=== PATIENT | male | born 1965 | race Caucasian/White ===

== ENCOUNTER 2018-08-27 11:31 | Emergency (ER) | payer OTHER, SELFPAY ==
[2018-08-27 12:22] LABS: Absolute Lymphocytes (CBC) 1.4 K/uL (0.7-4.9); Absolute Monocytes 0.5 K/uL (0.1-1.3); Absolute Neutrophil 5.1 K/uL (1.8-8.0); Basophils % 0.4 % (0-1.3); Eosinophils % 1.8 % (0-4.4); Hematocrit 47.1 % (39.6-49.0); MPV 7.7 fL (7.6-11.3); Monocytes % 6.7 % (3.3-12.3); RBC Red Blood Cell Count 5.05 M/uL (4.33-5.43)
[2018-08-27 12:43] LABS: ALT/SGPT 29 U/L (12-78); AST/SGOT 17 U/L (15-37); Alkaline Phosphatase 89 U/L (45-117); BUN Blood Urea Nitrogen 18 mg/dL (7-18); Bicarbonate 28 mmol/L (21-32); Bilirubin Direct 0.2 mg/dL (0-0.2); Glucose Level 111 mg/dL (74-106); NT PRO-BNP 17 pg/mL (<125); Protein, Total 7.4 g/dL (6.4-8.2); Sodium Level 139 mmol/L (136-145); Troponin (Emerg Dept Use Only) < 0.02 ng/mL (0.0-0.045)
--- NOTE | 2018-08-27 12:58 | RAD REPORT ---
EXAM DESCRIPTION: RAD - Chest Single View - 08/27/2018 12:20 pm CLINICAL HISTORY: Chest pain COMPARISON: None. TECHNIQUE: AP portable chest image was obtained 1211 hours . FINDINGS: No focal consolidation, mass or failure finding. Interstitial markings are mildly prominen t with the patient's baseline unknown. Heart and vasculature are normal. No measurable pleural effusi on and no pneumothorax. No acute bony abnormality seen. No acute aortic findings suspected. IMPRESSION: No focal cardiopulmonary finding. Mild prominence of the interstitial markings probably baseline for the patient.
--- NOTE | 2018-08-27 13:56 | EDPHYS ---
Physician Documentation [facility] Name: Roddy Byrd Age: 53 yrs Sex: Male : 1965 Arrival Date: 08/27/2018 Time: 11:32 Bed 7 Private MD: ED Physician Patricio Sánchez HPI: 08/27 13:50 This 53 yrs old Male presents to ER via Ambulatory with complaints of Chest rn Pain, High Blood Pressure. 13:50 The patient or guardian reports chest pain that is located primarily in the substernal rn area. Onset: 3 week(s) ago. The pain does not radiate. The chest pain is described as aching, dull. Duration: The patient or guardian reports multiple episodes, that are intermittent. Modifying factors: The symptoms are alleviated by nothing. the symptoms are aggravated by nothing. Severity of pain: At its worst the pain was mild in the emergency department the pain has improved. The patient has not experienced similar symptoms in the past. Reports 3 weeks of intermittent chest discomfort, feels "fluttering", no radiation, intermittent dyspnea, reports no symptoms while exercising, but got winded moving a safe which is not typical for him, otherwise doesn't take any meds. Has appt with cardiology in 3 days. . Historical: - Allergies: 11:56 No Known Allergies; aj1 - Home Meds: 11:56 None [Active]; aj1 - PMHx: 11:56 None; aj1 - PSHx: 11:56 Knee surgery; aj1 - Immunization history:: Flu vaccine is not up to date. - Social history:: Smoking status: Patient/guardian denies using tobacco. - Ebola Screening: : Patient denies travel to an Ebola-affected area in the 21 days before illness onset. - Family history:: not pertinent. - Hospitalizations: : No recent hospitalization is reported. ROS: 13:50 Constitutional: Negative for fever, chills, and weight loss, Eyes: Negative for injury, rn pain, redness, and discharge, Cardiovascular: Negative for edema Respiratory: Negative for wheezing, and pleuritic chest pain, Abdomen/GI: Negative for abdominal pain, nausea, vomiting, diarrhea, and constipation, MS/Extremity: Negative for injury and deformity, Skin: Negative for injury, rash, and discoloration, Neuro: Negative for headache, weakness, numbness, tingling, and seizure. Exam: 13:50 Constitutional: This is a well developed, well nourished patient who is awake, alert, rn and in no acute distress. Head/Face: Normocephalic, atraumatic. Eyes: Pupils equal round and reactive to light, extra-ocular motions intact. Lids and lashes normal. Conjunctiva and sclera are non-icteric and not injected. Cornea within normal limits. Periorbital areas with no swelling, redness, or edema. Neck: Trachea midline, no thyromegaly or masses palpated, and no cervical lymphadenopathy. Supple, full range of motion without nuchal rigidity, or vertebral point tenderness. No Meningismus. Cardiovascular: Regular rate and rhythm with a normal S1 and S2. No gallops, murmurs, or rubs. No JVD. No pulse deficits. Respiratory: Lungs have equal breath sounds bilaterally, clear to auscultation. No increased work of breathing, no retractions or nasal flaring. Abdomen/GI: Soft, non-tender Skin: Warm, dry with normal turgor. Normal color with no rashes, no lesions, and no evidence of cellulitis. MS/ Extremity: Pulses equal, no cyanosis. Neurovascular intact. Full, normal range of motion. Equal circumference. Neuro: Awake and alert, GCS 15, oriented to person, place, time, and situation. Cranial nerves II-XII grossly intact. Motor strength 5/5 in all extremities. Sensory grossly intact. Cerebellar exam normal. Vital Signs: 11:56 BP 148 / 97; Pulse 98; Resp 20; Temp 98.3; Pulse Ox 98% on R/A; Weight 74.84 kg (R); aj1 Height 5 ft. 9 in. (175.26 cm) (R); Pain 0/10; 13:00 BP 142 / 95; Pulse 92; Resp 18; Pulse Ox 99% on R/A; aj1 14:00 BP 137 / 92; Pulse 87; Resp 18; Pulse Ox 97% on R/A; aj1 11:56 Body Mass Index 24.37 (74.84 kg, 175.26 cm) aj1 MDM: 11:38 Patient medically screened. rn 13:50 Differential diagnosis: acute myocardial infarction, acute pericarditis, anxiety, rn coronary artery disease chest wall pain, costochondritis, pleurisy, pneumonia, pneumothorax, pulmonary embolus, stable angina. Data reviewed: vital signs, nurses notes, lab test result(s), EKG, radiologic studies, plain films, and as a result, I will admit patient. Counseling: I had a detailed discussion with the patient and/or guardian regarding: the historical points, exam findings, and any diagnostic results supporting the discharge/admit diagnosis, lab results, radiology results, the need for further work-up and treatment in the hospital. Special discussion: Based on the patient's history, exam, and Dx evaluation, there is no indication for emergent intervention or inpatient Tx. It is understood by the patient/guardian that if the Sx's persist or worsen they need to return immediately for re-evaluation. ED course: Possible chest pain equivalent, offered admission but patient has appt in 3 days, would like to go home and f/u outpt, neg trop, normal ecg, will dc home. BP improved without meds, will defer BP management to cardiology. Needs outpt stress/ECHO/BP management. Return precautions. . 08/27 11:51 Order name: Basic Metabolic Panel; Complete Time: 12:08/27 11:51 Order name: CBC with Diff; Complete Time: 12:08/27 11:51 Order name: LFT's; Complete Time: 12:08/27 11:51 Order name: NT PRO-BNP; Complete Time: 12:08/27 11:51 Order name: Troponin (emerg Dept Use Only); Complete Time: 12:08/27 11:51 Order name: D-Dimer; Complete Time: 12:08/27 11:51 Order name: XRAY Chest (1 view); Complete Time: 13:08/27 11:51 Order name: EKG; Complete Time: 11:52 08/27 11:51 Order name: Cardiac monitoring; Complete Time: 12:08/27 11:51 Order name: EKG - Nurse/Tech; Complete Time: 12:08/27 11:51 Order name: IV Saline Lock; Complete Time: 12:08/27 11:51 Order name: Labs collected and sent; Complete Time: 12:08/27 11:51 Order name: O2 Per Protocol; Complete Time: 12:08/27 11:51 Order name: O2 Sat Monitoring; Complete Time: 12:00 rn Administered Medications: No medications were administered Disposition: 08/27/18 13:56 Discharged to Home. Impression: Chest pain, unspecified. - Condition is Stable. - Discharge Instructions: Nonspecific Chest Pain. - Medication Reconciliation Form, Thank You Letter, Antibiotic Education, Prescription Opioid Use form. - Follow up: Private Physician; When: As needed; Reason: Recheck today's complaints, Re-evaluation by your physician. - Problem is new. - Symptoms have improved. Signatures: Dispatcher [employer] EDMS Norma Reid RN RN aj1 Patricio Sánchez MD MD rn Corrections: (The following items were deleted from the chart) 13:53 13:50 Constitutional: This is a well developed, well nourished patient who is awake, rn alert, and in no acute distress. Head/Face: Normocephalic, atraumatic. Eyes: Pupils equal round and reactive to light, extra-ocular motions intact. Lids and lashes normal. Conjunctiva and sclera are non-icteric and not injected. Cornea within normal limits. Periorbital areas with no swelling, redness, or edema. Neck: Trachea midline, no thyromegaly or masses palpated, and no cervical lymphadenopathy. Supple, full range of motion without nuchal rigidity, or vertebral point tenderness. No Meningismus. Cardiovascular: Regular rate and rhythm with a normal S1 and S2. No gallops, murmurs, or rubs. No JVD. No pulse deficits. Respiratory: Lungs have equal breath sounds bilaterally, clear to auscultation. No increased work of breathing, no retractions or nasal flaring. Abdomen/GI: Soft, non-tender Skin: Warm, dry with normal turgor. Normal color with no rashes, no lesions, and no evidence of cellulitis. MS/ Extremity: Pulses equal, no cyanosis. Neurovascular intact. Full, normal range of motion. Equal circumference. Neuro: Awake and alert, GCS 15, oriented to person, place, time, and situation. Cranial nerves II-XII grossly intact. Motor strength 5/5 in all extremities. Sensory grossly intact. Cerebellar exam normal. Normal gait. rn 14:37 13:56 08/27/2018 13:56 Discharged to Home. Impression: Chest pain, unspecified. aj1 Condition is Stable. Forms are Medication Reconciliation Form, Thank You Letter, Antibiotic Education, Prescription Opioid Use. Follow up: Private Physician; When: As needed; Reason: Recheck today's complaints, Re-evaluation by your physician. Problem is new. Symptoms have improved. rn
--- NOTE | 2018-08-27 13:56 | ER ---
Nurse's Notes [facility] Name: Roddy Byrd Age: 53 yrs Sex: Male : 1965 Arrival Date: 08/27/2018 Time: 11:32 Bed 7 Private MD: Diagnosis: Chest pain, unspecified Presentation: 08/27 11:53 Presenting complaint: Patient states: He has been having dizziness off and on for the aj1 past 3 weeks. Patient also reports a "weird feeling" in his chest. Denies shortness of breath. He took his blood pressure at home today and noticed that it was elevated, so he was concerned. Reports that he also sometimes has some tingling in his hands when he lays down at night. Transition of care: patient was not received from another setting of care. Onset of symptoms was August 2018. Risk Assessment: Do you want to hurt yourself or someone else? Patient reports no desire to harm self or others. Initial Sepsis Screen: Does the patient meet any 2 criteria? HR > 90 bpm. No. Patient's initial sepsis screen is negative. Does the patient have a suspected source of infection? No. Patient's initial sepsis screen is negative. Care prior to arrival: None. 11:53 Method Of Arrival: Ambulatory aj1 11:53 Acuity: SARAH 3 aj1 Triage Assessment: 11:56 General: Appears in no apparent distress. comfortable, Behavior is calm, cooperative, aj1 appropriate for age. Pain: Denies pain. Cardiovascular: Patient's skin is warm and dry. Historical: - Allergies: 11:56 No Known Allergies; aj1 - Home Meds: 11:56 None [Active]; aj1 - PMHx: 11:56 None; aj1 - PSHx: 11:56 Knee surgery; aj1 - Immunization history:: Flu vaccine is not up to date. - Social history:: Smoking status: Patient/guardian denies using tobacco. - Ebola Screening: : Patient denies travel to an Ebola-affected area in the 21 days before illness onset. - Family history:: not pertinent. - Hospitalizations: : No recent hospitalization is reported. Screenin:57 Abuse screen: Denies threats or abuse. Denies injuries from another. Nutritional aj1 screening: No deficits noted. Tuberculosis screening: No symptoms or risk factors identified. 14:35 Fall Risk None identified. aj1 Assessment: 11:57 General: Appears in no apparent distress. comfortable, Behavior is calm, cooperative, aj1 appropriate for age. Pain: Denies pain. Pain: Patient denies pain at this time Pain began N/A patient denies pain at this time. Neuro: Level of Consciousness is awake, alert, obeys commands, Oriented to person, place, time, situation, Moves all extremities. Full function Speech is normal, Facial symmetry appears normal, Reports dizziness, that is intermittent for the past 3 weeks. Cardiovascular: Reports a weird feelings in his chest Heart tones S1 S2 present Patient's skin is warm and dry. Rhythm is sinus rhythm. Respiratory: Airway is patent Respiratory effort is even, unlabored, Respiratory pattern is regular, symmetrical, Breath sounds are clear bilaterally. Denies cough, shortness of breath. GI: No signs and/or symptoms were reported involving the gastrointestinal system. : No signs and/or symptoms were reported regarding the genitourinary system. EENT: No signs and/or symptoms were reported regarding the EENT system. Derm: No signs and/or symptoms reported regarding the dermatologic system. Skin is pink, warm \\T\\ dry. normal. Musculoskeletal: No signs and/or symptoms reported regarding the musculoskeletal system. Circulation, motion, and sensation intact. 13:00 Reassessment: Patient appears in no apparent distress at this time. No changes from aj1 previously documented assessment. Patient and/or family updated on plan of care and expected duration. Pain level reassessed. 14:05 Reassessment: Patient appears in no apparent distress at this time. No changes from aj1 previously documented assessment. Patient and/or family updated on plan of care and expected duration. Pain level reassessed. Patient is alert, oriented x 3, equal unlabored respirations, skin warm/dry/pink. Vital Signs: 11:56 BP 148 / 97; Pulse 98; Resp 20; Temp 98.3; Pulse Ox 98% on R/A; Weight 74.84 kg (R); aj1 Height 5 ft. 9 in. (175.26 cm) (R); Pain 0/10; 13:00 BP 142 / 95; Pulse 92; Resp 18; Pulse Ox 99% on R/A; aj1 14:00 BP 137 / 92; Pulse 87; Resp 18; Pulse Ox 97% on R/A; aj1 11:56 Body Mass Index 24.37 (74.84 kg, 175.26 cm) aj1 ED Course: 11:32 Patient arrived in ED. as 11:38 Patricio Sánchez MD is Attending Physician. rn 11:53 Norma Reid RN is Primary Nurse. aj1 11:55 Triage completed. aj1 11:56 Arm band placed on. aj1 11:57 Patient has correct armband on for positive identification. shelter monitor on. Pulse aj1 ox on. NIBP on. 11:57 No provider procedures requiring assistance completed. Patient maintains SpO2 aj1 saturation greater than 95% on room air. 12:04 EKG done, by ED staff, reviewed by Patricio Sánchez MD. em1 12:15 Initial lab(s) drawn, by me, sent to lab. Inserted saline lock: 18 gauge in right aj1 antecubital area, using aseptic technique. Blood collected. 12:19 X-ray completed. Portable x-ray completed in exam room. Patient tolerated procedure ls3 well. 12:20 XRAY Chest (1 view) In Process Unspecified. EDMS 14:35 IV discontinued, intact, bleeding controlled, No redness/swelling at site. Pressure aj1 dressing applied. Administered Medications: No medications were administered Outcome: 13:56 Discharge ordered by MD. rn 14:36 Discharged to home ambulatory, with family. aj1 14:36 Condition: good 14:36 Discharge instructions given to patient, Instructed on discharge instructions, follow up and referral plans. Demonstrated understanding of instructions, follow-up care. 14:37 Patient left the ED. aj1 Signatures: Dispatcher [employer] EDMS Norma Reid RN RN aj1 Dayanna Ravi as Patricio Sánchez MD MD rn Martinez, Eric 1 Channing Garrett ls3
--- NOTE | 2018-08-28 07:07 | EKG ---
Test Date: 2018-08-27 Test Time: 11:51:01 Training Lead: KATHLEEN MEASUREMENT RESULTS: Intervals: Rate: 96 OR: 142 QRSD: 86 QT: 348 QTc: 439 [place]: P: 74 OR: 142 QRS: -9 T: 71 INTERPRETIVE STATEMENTS: Normal sinus rhythm Normal ECG No previous ECG available for comparison Electronically Signed On 08-28-18 07:05:03 MOLD CAR PUSHER by Vinayak Barrera
== END 2018-08-27 14:37 | disposition home or self-care (01) ==
LOC: ER 11:31
DX: R07.9 Chest pain, unspecified (principal)
CPT/HCPCS: 36415; 71045; 80048; 80076; 83880; 84484; 85025; 85379; 93005; 99285